=== PATIENT | male | born 1990 | race Caucasian/White ===

== ENCOUNTER → 2016-12-16 | Outpatient (CLI) | payer BC | LOC: MW.CHIM 16:10 | PROVIDERS: ATTEND Internal Medicine | DX: R68.89 Other general symptoms and signs (principal) | CPT/HCPCS: 87804 ==

== ENCOUNTER 2016-12-17 21:27 | Emergency (ER) | payer BC ==
[2016-12-17] MEDS ORDERED: Sodium Chloride 0.9% 2.5 ML Syringe FLUSH PRN (22:17)
[2016-12-17] MEDS ORDERED: Sodium Chloride 0.9% 10 ML Syringe FLUSH PRN (22:17)
[2016-12-17] MEDS ORDERED: Sodium Chloride 0.9% 1,000 ML IV ONE (22:17)
--- NOTE | 2016-12-17 22:21 | EDM.PDOC ---
<Smiley Miranda - Last Filed: 12/17/16 22:22> ED HPI GI/ABDOMINAL - General Chief Complaint: Gastrointestinal Problem Stated Complaint: VOMITING/FEVER/CHILLS/DIARRHEA Time Seen by Provider: 12/17/16 22:15 Source of Information: Reports: Patient, Family History Limitations: Reports: No limitations - History of Present Illness INITIAL COMMENTS - FREE TEXT/NARRATIVE: HISTORY AND PHYSICAL: [26-year-old male presenting with abdominal pain diarrhea sore throat] History of Present Illness: [Patient sick for 3 days started on antibiotics by Dr. Styles. Patient does not know what type of antibiotic he has been on these started having diarrhea after taking it] Review of Systems: As per history of present illness and below otherwise all systems reviewed and negative. Past medical history: As per history of present illness and as reviewed below otherwise noncontributory. Surgical history: As per history of present illness and as reviewed below otherwise noncontributory. Social history: No reported history of drug or alcohol abuse. Family history: As per history of present illness and as reviewed below otherwise noncontributory. Physical exam: Alert and oriented, skin is pale, tongue is dry. HEENT: Atraumatic, normocehpalic, pupils reactive, negative for conjunctival pallor or scleral icterus, mucous membranes moist, throat clear, neck supple, nontender, trachea midline. It is nontender tympanic membranes are dull, pharynx is erythematous, shotty cervical adenopathy palpable. Lungs: Clear to auscultation, breath sounds equal bilaterally, chest non tender. Heart: S1S2, regular, negative for clicks, rubs, or JVD. Abdomen: Soft, nondistended, nontender. Negative for masses or hepatossplenmegaly. Negative for costovertebral tenderness. Extremities: Atraumatic, negative for cords or calf pain. Neurovascular unremarkable. Neuro: Awake, alert, oriented. Cranial nerves II through XII unremarkable. Cerebellum unremarkable. Motor and sensory unremarkable throughout. Exam nonfocal. Diagnostics: [CBC, CMP, Strep] Therapeutics: [] Impression: [] Nausea & vomiting Dehydration Diarrhea Plan: [] Definitive disposition and diagnosis as appropriate pending reevaluation and review of above. - Related Data Allergies/ADRs: Allergies Allergy/AdvReac Type Severity Reaction Status Date / Time No Known Allergies Allergy Verified 12/17/16 22:13 Home Meds: Home Meds Amoxicillin/Potassium Clav [Augmentin 875-125 Tablet] 1 tab PO Q12HR 12/17/16 [ History] ED ROS GENERAL - Review of Systems Review Of Systems: ROS reveals no pertinent complaints other than HPI. ED EXAM, GI/ABD - Physical Exam Exam: See Below (see dictation) Course - Vital Signs Last Recorded V/S: Last Vital Signs Temp 36.9 C 12/17/16 22:15 Pulse 93 12/17/16 22:15 Resp 18 12/17/16 22:15 BP 166/76 H 12/17/16 22:15 Pulse Ox 96 12/17/16 22:15 - Orders/Labs/Meds Orders: Active Orders 24 hr Category Date Time Status Communication Order [RC] STAT Care 12/17/16 22:28 Active CULTURE STOOL + CAMPY+SHIGATOX [] Stat Lab 12/18/16 00:10 Received CULTURE STREP A CONFIRMATION [] Stat Lab 12/17/16 22:38 Results STREP SCRN A RAPID W CULT CONF [] Stat Lab 12/17/16 22:38 Results Sodium Chloride 0.9% [Saline Flush] Med 12/17/16 22:17 Active 10 ml FLUSH ASDIRECTED PRN Sodium Chloride 0.9% [Saline Flush] Med 12/17/16 22:17 Active 2.5 ml FLUSH ASDIRECTED PRN Saline Lock Insert [OM.PC] Stat Oth 12/17/16 22:17 Ordered Medication Orders Sodium Chloride (Saline Flush) 10 ml FLUSH ASDIRECTED PRN PRN Reason: Keep Vein Open Sodium Chloride (Saline Flush) 2.5 ml FLUSH ASDIRECTED PRN PRN Reason: Keep Vein Open Labs: Laboratory Tests 12/17/16 12/17/16 12/17/16 Range/Units 22:29 22:35 22:35 WBC 5.80 (4.0-11.0) K/uL RBC 5.22 (4.50-5.90) M/uL Hgb 15.7 (13.0-17.0) g/dL Hct 46.2 (38.0-50.0) % MCV 88.5 (80.0-98.0) fL MCH 30.1 (27.0-32.0) pg MCHC 34.0 (31.0-37.0) g/dL RDW Std Deviation 44.2 (28.0-62.0) fl RDW Coeff of Jey 14 (11.0-15.0) % Plt Count 161 (150-400) K/uL MPV 10.40 (7.40-12.00) fL Neut % (Auto) 67.5 (48.0-80.0) % Lymph % (Auto) 21.6 (16.0-40.0) % Morrow % (Auto) 9.0 (0.0-15.0) % Eos % (Auto) 1.7 (0.0-7.0) % Baso % (Auto) 0.2 (0.0-1.5) % Neut # 3.9 (1.4-5.7) K/uL Lymph # 1.3 (0.6-2.4) K/uL Morrow # 0.5 (0.0-0.8) K/uL Eos # 0.1 (0.0-0.7) K/uL Baso # 0.0 (0.0-0.1) K/uL Nucleated RBC % 0.0 /100WBC Nucleated RBCs # 0 K/uL Lactate 0.7 (0.20-2.00) mmol/L Sodium 135 L (136-146) mmol/L Potassium 4.0 (3.5-5.1) mmol/L Chloride 101 (98-110) mmol/L Carbon Dioxide 26 (21-31) mmol/L BUN 12 (6.0-23.0) mg/dL Creatinine 0.8 (0.6-1.5) mg/dL Est Cr Clr Drug Dosing 145.40 mL/min Estimated GFR (MDRD) > 60.0 ml/min Glucose 105 (60-110) mg/dL Calcium 8.5 L (8.8-10.8) mg/dL Total Bilirubin 0.8 (0.1-1.5) mg/dL AST 25 (5-40) IU/L ALT 24 (8-54) IU/L Alkaline Phosphatase 52 (40-150) Total Protein 7.5 (6.0-8.0) g/dL Albumin 4.2 (3.5-5.0) g/dL Globulin 3.3 (2.0-3.5) g/dL Albumin/Globulin Ratio 1.3 (1.3-2.8) Amylase (10-90) U/L Lipase (7-80) U/L Urine Color Urine Appearance Urine pH (5.0-8.0) Ur Specific [place] (1.001-1.035) Urine Protein (NEGATIVE) mg/dL Urine Glucose (UA) (NEGATIVE) mg/dL Urine Ketones (NEGATIVE) mg/dL Urine Occult Blood (NEGATIVE) Urine Nitrite (NEGATIVE) Urine Bilirubin (NEGATIVE) Urine Ictotest Urine Urobilinogen (<2.0) EU/dL Ur Leukocyte Esterase (NEGATIVE) Urine RBC (0-2/HPF) Urine WBC (0-5/HPF) Ur Epithelial Cells (NONE-FEW) Calcium Oxalate Crystal (NEGATIVE) Urine Bacteria (NEGATIVE) Urine Mucus (NONE-MOD) 12/17/16 12/18/16 Range/Units 22:35 00:10 WBC (4.0-11.0) K/uL RBC (4.50-5.90) M/uL Hgb (13.0-17.0) g/dL Hct (38.0-50.0) % MCV (80.0-98.0) fL MCH (27.0-32.0) pg MCHC (31.0-37.0) g/dL RDW Std Deviation (28.0-62.0) fl RDW Coeff of Jey (11.0-15.0) % Plt Count (150-400) K/uL MPV (7.40-12.00) fL Neut % (Auto) (48.0-80.0) % Lymph % (Auto) (16.0-40.0) % Morrow % (Auto) (0.0-15.0) % Eos % (Auto) (0.0-7.0) % Baso % (Auto) (0.0-1.5) % Neut # (1.4-5.7) K/uL Lymph # (0.6-2.4) K/uL Morrow # (0.0-0.8) K/uL Eos # (0.0-0.7) K/uL Baso # (0.0-0.1) K/uL Nucleated RBC % /100WBC Nucleated RBCs # K/uL Lactate (0.20-2.00) mmol/L Sodium (136-146) mmol/L Potassium (3.5-5.1) mmol/L Chloride (98-110) mmol/L Carbon Dioxide (21-31) mmol/L BUN (6.0-23.0) mg/dL Creatinine (0.6-1.5) mg/dL Est Cr Clr Drug Dosing mL/min Estimated GFR (MDRD) ml/min Glucose (60-110) mg/dL Calcium (8.8-10.8) mg/dL Total Bilirubin (0.1-1.5) mg/dL AST (5-40) IU/L ALT (8-54) IU/L Alkaline Phosphatase (40-150) Total Protein (6.0-8.0) g/dL Albumin (3.5-5.0) g/dL Globulin (2.0-3.5) g/dL Albumin/Globulin Ratio (1.3-2.8) Amylase 64 (10-90) U/L Lipase 36 (7-80) U/L Urine Color YELLOW Urine Appearance CLEAR Urine pH 6.0 (5.0-8.0) Ur Specific [place] >= 1.030 (1.001-1.035) Urine Protein TRACE (NEGATIVE) mg/dL Urine Glucose (UA) NEGATIVE (NEGATIVE) mg/dL Urine Ketones TRACE H (NEGATIVE) mg/dL Urine Occult Blood NEGATIVE (NEGATIVE) Urine Nitrite NEGATIVE (NEGATIVE) Urine Bilirubin SMALL H (NEGATIVE) Urine Ictotest NEGATIVE Urine Urobilinogen 0.2 (<2.0) EU/dL Ur Leukocyte Esterase NEGATIVE (NEGATIVE) Urine RBC 0-1 (0-2/HPF) Urine WBC 0-2 (0-5/HPF) Ur Epithelial Cells RARE (NONE-FEW) Calcium Oxalate Crystal FEW (NEGATIVE) Urine Bacteria RARE (NEGATIVE) Urine Mucus MODERATE (NONE-MOD) Meds: Medications Generic Name Dose Route Start Last Admin Trade Name Freq PRN Reason Stop Dose Admin Sodium Chloride 10 ml 12/17/16 22:17 Saline Flush FLUSH ASDIRECTED PRN Keep Vein Open Sodium Chloride 2.5 ml 12/17/16 22:17 Saline Flush FLUSH ASDIRECTED PRN Keep Vein Open Discontinued Medications Generic Name Dose Route Start Last Admin Trade Name Freq PRN Reason Stop Dose Admin Sodium Chloride 1,000 mls @ 999 mls/hr 12/17/16 22:17 12/17/16 23:06 Normal Saline IV 12/17/16 23:17 999 mls/hr STAT ONE Administration Ketorolac Tromethamine 30 mg 12/17/16 22:29 12/17/16 23:11 Toradol IVPUSH 12/17/16 22:30 30 mg ONETIME ONE Administration Ondansetron HCl 4 mg 12/17/16 22:23 12/17/16 23:09 Zofran IVPUSH 12/17/16 22:24 4 mg ONETIME ONE Administration Departure - Departure Time of Disposition: 22:24 Disposition: Still A Patient 30 Condition: good Clinical Impression: Vomiting, Diarrhea Instructions: Dehydration, Adult, [id number] Referrals: PCP,None [Primary Care Provider] - Forms: ED Department Discharge Additional Instructions: For his given to Dr. Asiya Chan to assume care. Patient has stable vital signs. - My Orders Last 24 Hours: My Active Orders 12/17/16 22:28 Communication Order [RC] STAT 12/18/16 00:10 CULTURE STOOL + CAMPY+SHIGATOX [RM] Stat - Assessment/Plan Last 24 Hours: My Active Orders 12/17/16 22:28 Communication Order [RC] STAT 12/18/16 00:10 CULTURE STOOL + CAMPY+SHIGATOX [RM] Stat <Asiya Chan - Last Filed: 12/18/16 01:39> ED HPI GI/ABDOMINAL - History of Present Illness INITIAL COMMENTS - FREE TEXT/NARRATIVE: This Is Dr. Chan dictating an addendum note as the supervising physician on this case. Agree with history of physical as above. Patient states he was just feeling weak somewhat lightheaded and had a fever and then saw Dr. Styles and influenza was negative. He states his present antibiotics but he is not sure why and of the diarrhea started after that. He's not had any recent travel and no new foods. He's been nauseated for the last several days and only vomited once today. He's had fevers on and off and he's been trying to hydrate and he's been feeling so nauseated. He has no complaints no headache no chest pain or shortness of breath runny nose but does have a sore throat.I agree with the physical as above and I will add to the testing or he ordered a UA amylase lipase lactic acid any stool study if he's able to produce Patient was able to produce a stool sample and it was sent for C. difficile as well as culture ;he does state he does feel improved He is currently starting to take by mouth. Advised patient to stop the antibiotic that he was started on by Dr. Styles Patient is aware that C. difficile is negative and a culture will be pending and we will contact him in 2 days if he needs treatment. I will abide is on bland diet pushing hydration and reasons to return to the ER. I discussed all testing results with him. Impression: Diarrhea/mild dehydration Course - Orders/Labs/Meds Labs: Laboratory Tests 12/17/16 12/17/16 12/17/16 Range/Units 22:29 22:35 22:35 WBC 5.80 (4.0-11.0) K/uL RBC 5.22 (4.50-5.90) M/uL Hgb 15.7 (13.0-17.0) g/dL Hct 46.2 (38.0-50.0) % MCV 88.5 (80.0-98.0) fL MCH 30.1 (27.0-32.0) pg MCHC 34.0 (31.0-37.0) g/dL RDW Std Deviation 44.2 (28.0-62.0) fl RDW Coeff of Jey 14 (11.0-15.0) % Plt Count 161 (150-400) K/uL MPV 10.40 (7.40-12.00) fL Neut % (Auto) 67.5 (48.0-80.0) % Lymph % (Auto) 21.6 (16.0-40.0) % Morrow % (Auto) 9.0 (0.0-15.0) % Eos % (Auto) 1.7 (0.0-7.0) % Baso % (Auto) 0.2 (0.0-1.5) % Neut # 3.9 (1.4-5.7) K/uL Lymph # 1.3 (0.6-2.4) K/uL Morrow # 0.5 (0.0-0.8) K/uL Eos # 0.1 (0.0-0.7) K/uL Baso # 0.0 (0.0-0.1) K/uL Nucleated RBC % 0.0 /100WBC Nucleated RBCs # 0 K/uL Lactate 0.7 (0.20-2.00) mmol/L Sodium 135 L (136-146) mmol/L Potassium 4.0 (3.5-5.1) mmol/L Chloride 101 (98-110) mmol/L Carbon Dioxide 26 (21-31) mmol/L BUN 12 (6.0-23.0) mg/dL Creatinine 0.8 (0.6-1.5) mg/dL Est Cr Clr Drug Dosing 145.40 mL/min Estimated GFR (MDRD) > 60.0 ml/min Glucose 105 (60-110) mg/dL Calcium 8.5 L (8.8-10.8) mg/dL Total Bilirubin 0.8 (0.1-1.5) mg/dL AST 25 (5-40) IU/L ALT 24 (8-54) IU/L Alkaline Phosphatase 52 (40-150) Total Protein 7.5 (6.0-8.0) g/dL Albumin 4.2 (3.5-5.0) g/dL Globulin 3.3 (2.0-3.5) g/dL Albumin/Globulin Ratio 1.3 (1.3-2.8) Amylase (10-90) U/L Lipase (7-80) U/L Urine Color Urine Appearance Urine pH (5.0-8.0) Ur Specific [place] (1.001-1.035) Urine Protein (NEGATIVE) mg/dL Urine Glucose (UA) (NEGATIVE) mg/dL Urine Ketones (NEGATIVE) mg/dL Urine Occult Blood (NEGATIVE) Urine Nitrite (NEGATIVE) Urine Bilirubin (NEGATIVE) Urine Ictotest Urine Urobilinogen (<2.0) EU/dL Ur Leukocyte Esterase (NEGATIVE) Urine RBC (0-2/HPF) Urine WBC (0-5/HPF) Ur Epithelial Cells (NONE-FEW) Calcium Oxalate Crystal (NEGATIVE) Urine Bacteria (NEGATIVE) Urine Mucus (NONE-MOD) 12/17/16 12/18/16 Range/Units 22:35 00:10 WBC (4.0-11.0) K/uL RBC (4.50-5.90) M/uL Hgb (13.0-17.0) g/dL Hct (38.0-50.0) % MCV (80.0-98.0) fL MCH (27.0-32.0) pg MCHC (31.0-37.0) g/dL RDW Std Deviation (28.0-62.0) fl RDW Coeff of Jey (11.0-15.0) % Plt Count (150-400) K/uL MPV (7.40-12.00) fL Neut % (Auto) (48.0-80.0) % Lymph % (Auto) (16.0-40.0) % Morrow % (Auto) (0.0-15.0) % Eos % (Auto) (0.0-7.0) % Baso % (Auto) (0.0-1.5) % Neut # (1.4-5.7) K/uL Lymph # (0.6-2.4) K/uL Morrow # (0.0-0.8) K/uL Eos # (0.0-0.7) K/uL Baso # (0.0-0.1) K/uL Nucleated RBC % /100WBC Nucleated RBCs # K/uL Lactate (0.20-2.00) mmol/L Sodium (136-146) mmol/L Potassium (3.5-5.1) mmol/L Chloride (98-110) mmol/L Carbon Dioxide (21-31) mmol/L BUN (6.0-23.0) mg/dL Creatinine (0.6-1.5) mg/dL Est Cr Clr Drug Dosing mL/min Estimated GFR (MDRD) ml/min Glucose (60-110) mg/dL Calcium (8.8-10.8) mg/dL Total Bilirubin (0.1-1.5) mg/dL AST (5-40) IU/L ALT (8-54) IU/L Alkaline Phosphatase (40-150) Total Protein (6.0-8.0) g/dL Albumin (3.5-5.0) g/dL Globulin (2.0-3.5) g/dL Albumin/Globulin Ratio (1.3-2.8) Amylase 64 (10-90) U/L Lipase 36 (7-80) U/L Urine Color YELLOW Urine Appearance CLEAR Urine pH 6.0 (5.0-8.0) Ur Specific [place] >= 1.030 (1.001-1.035) Urine Protein TRACE (NEGATIVE) mg/dL Urine Glucose (UA) NEGATIVE (NEGATIVE) mg/dL Urine Ketones TRACE H (NEGATIVE) mg/dL Urine Occult Blood NEGATIVE (NEGATIVE) Urine Nitrite NEGATIVE (NEGATIVE) Urine Bilirubin SMALL H (NEGATIVE) Urine Ictotest NEGATIVE Urine Urobilinogen 0.2 (<2.0) EU/dL Ur Leukocyte Esterase NEGATIVE (NEGATIVE) Urine RBC 0-1 (0-2/HPF) Urine WBC 0-2 (0-5/HPF) Ur Epithelial Cells RARE (NONE-FEW) Calcium Oxalate Crystal FEW (NEGATIVE) Urine Bacteria RARE (NEGATIVE) Urine Mucus MODERATE (NONE-MOD)
[2016-12-17] MEDS ORDERED: Ondansetron 4 MG/2 ML SDV IVPUSH ONE (22:23)
[2016-12-17] MEDS ORDERED: Ketorolac 30 MG/ML SDV IVPUSH ONE (22:29)
[2016-12-18 00:25] LABS: CHLORIDE,CL 101 mmol/L (98-110); SODIUM,NA 135 mmol/L (136-146)
[2016-12-18 01:56] VITALS: BP 106/60
== END 2016-12-18 01:55 | disposition still patient (30) ==
LOC: MW.ED 21:27
DX: R19.7 Diarrhea, unspecified (principal); R11.2 Nausea with vomiting, unspecified
CPT/HCPCS: 36415; 80053; 81001; 82150; 83605; 83690; 85025; 87046; 87081; 87324; 87880; 87899; 96361; 96374; 96375; 99284; J1885; J2405; J7040

== ENCOUNTER 2020-06-02 17:46 | Emergency (ER) | payer BC ==
[2020-06-02] MEDS ORDERED: Lidocaine 1% PF 2 ML SDV INJECT ONE (17:47)
[2020-06-02] MEDS ORDERED: Diphtheria,Pertussis(Acell),Tetanus Vaccine 0.5 ML Syringe IM ONE (17:47)
--- NOTE | 2020-06-02 18:02 | EDM.PDOC ---
ED HPI GENERAL MEDICAL PROBLEM - General Chief Complaint: Laceration Stated Complaint: CUT FINGER Time Seen by Provider: 06/02/20 17:47 Source of Information: Reports: Patient History Limitations: Reports: No Limitations - History of Present Illness INITIAL COMMENTS - FREE TEXT/NARRATIVE: HISTORY AND PHYSICAL: History of present illness: Patient is a 30-year-old male who presents to the emergency room with complaints of a laceration to his right index finger. 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 He denies any other extremity involvement. He offers no systemic complaints. Believes his tetanus has been updated within the last 3 years. Review of systems: As per history of present illness and below otherwise all systems reviewed and negative. Past medical history: As per history of present illness and as reviewed below otherwise noncontributory. Surgical history: As per history of present illness and as reviewed below otherwise noncontributory. Social history: See social history for further information Family history: As per history of present illness and as reviewed below otherwise noncontributory. Physical exam: General: Well developed and well nourished 30 year old male. Alert and orientated x 3. Nontoxic in appearance and in no acute distress. Vital signs are stable and have been reviewed by me. Nursing notes were reviewed. HEENT: Atraumatic, normocephalic, pupils equal and reactive bilaterally, negative for conjunctival pallor or scleral icterus, mucous membranes moist, trachea midline. No drooling or trismus noted. No meningeal signs. No hot potato voice noted. Lungs: Clear to auscultation, breath sounds equal bilaterally. Normal work of breathing, no accessory muscles used. Heart: S1S2, regular rate and rhythm without overt murmur Skin: 1.5 cm laceration to the mid palmar surface of the right index finger. No tendon involvement. His remaining skin is intact, warm, dry. No lesions or rashes noted. Hematologic: No petechiae or purpra. Mucosa appropriate color and normal nail bed color and refill. Extremities: Atraumatic, moves all extremities per self without difficulty or deficits, negative for cords or calf pain. Neurovascular unremarkable. Neuro: Awake, alert, oriented. Cranial nerves II through XII unremarkable. Cerebellum unremarkable. Motor and sensory unremarkable throughout. Exam nonfocal. Notes: 1% lidocaine was used to anesthetize the area. Usual and customary procedures were followed for suture placement. 4-0 nylon, #3 interrupted sutures were placed. Patient tolerated well. We discussed signs and symptoms that would prompt them to return to the Emergency Department. Medication, follow up and supportive care measures were reviewed and discussed. Voices understanding and is agreeable to plan of care. Denies any further questions or concerns at this time. Diagnostics: None Therapeutics: Tdap, Lidocaine Prescription: None Impression: Laceration Plan: 1. Keep the area clean and dry. Continue to monitor for signs of infection. Sutures to be removed in 7-10 days. 2. Tylenol and/or ibuprofen as needed for pain management. 3. Please follow-up with your primary care provider for re-evaluation. Return to the ED as needed and as discussed. Definitive disposition and diagnosis as appropriate pending reevaluation and review of above. - Related Data Allergies Allergy/AdvReac Type Severity Reaction Status Date / Time No Known Allergies Allergy Verified 06/02/20 17:50 Home Meds: Home Meds . [No Known Home Meds] 06/02/20 [History] Past Medical History - Past Health History Medical/Surgical History: Denies Medical/Surgical History - Past Surgical History Other Musculoskeletal Surgeries/Procedures:: Right elbow and right femur surgery Social & Family History - Family History Family Medical History: Noncontributory - Caffeine Use Caffeine Use: Reports: Soda Caffeine Use Comment: 3drinks/day ED ROS GENERAL - Review of Systems Review Of Systems: Comprehensive ROS is negative, except as noted in HPI. ED EXAM, SKIN/RASH Exam: See Below (See dictation) ED SKIN PROCEDURES - Laceration/Wound Repair Right index finger Appearance: Subcutaneous, Linear, Clean Distal NVT: Neuro & Vascular Intact, No Tendon Injury Anesthetic Type: Local Local Anesthesia - Lidocaine (Xylocaine): 1% Plain Local Anesthetic Volume: 2cc Skin Prep: Chlorhexidine (Hibiciens), Saline, Sterile Drape Saline Irrigation (cc's): 250 Exploration/Debridement/Repair: Wound Explored, In a Bloodless Field, Explored to Base, No Foreign Material Found Closed with: Sutures Lac/Wound length In cm: 1.5 Suture Size: 4-0 # of Sutures: 3 Suture Type: Nylon, Interrupted, Simple Drain Placement: No Sterile Dressing Applied: Provider Tetanus Status Addressed: Yes Complications: No Course - Vital Signs Last Recorded V/S: Last Vital Signs Temp 97.1 F 06/02/20 17:51 Pulse 89 06/02/20 17:51 Resp 19 06/02/20 17:51 BP 109/63 06/02/20 17:51 Pulse Ox 99 06/02/20 17:51 - Orders/Labs/Meds Orders: Active Orders 24 hr Category Date Time Status Vaccines to be Administered [RC] PER UNIT ROUTINE Care 06/02/20 17:47 Ordered Meds: Medications Discontinued Medications Generic Name Dose Route Start Last Admin Trade Name Deniz PRN Reason Stop Dose Admin Diphtheria/Tetanus/Acell Pertussis 0.5 ml 06/02/20 17:47 06/02/20 17:57 Adacel IM 06/02/20 17:48 Not Given .ONCE ONE Lidocaine HCl 2 ml 06/02/20 17:47 06/02/20 17:57 Xylocaine-Mpf 1% INJECT 06/02/20 17:48 2 ml ONETIME ONE Administration Departure - Departure Time of Disposition: 18:07 Disposition: Home, Self-Care 01 Clinical Impression: Laceration - Discharge Information Instructions: Laceration Care, Adult, Pall-[id number] Referrals: PCP,None [Primary Care Provider] - Forms: ED Department Discharge Additional Instructions: The following information is given to patients seen in the emergency department who are being discharged to home. This information is to outline your options for follow-up care. We provide all patients seen in our emergency department with a follow-up referral. The need for follow-up, as well as the timing and circumstances, are variable depending upon the specifics of your emergency department visit. If you don't have a primary care physician on staff, we will provide you with a referral. We always advise you to contact your personal physician following an emergency department visit to inform them of the circumstance of the visit and for follow-up with them and/or the need for any referrals to a consulting specialist. The emergency department will also refer you to a specialist when appropriate. This referral assures that you have the opportunity for follow-up care with a specialist. All of these measure are taken in an effort to provide you with optimal care, which includes your follow-up. Under all circumstances we always encourage you to contact your private physician who remains a resource for coordinating your care. When calling for follow-up care, please make the office aware that this follow-up is from your recent emergency room visit. If for any reason you are refused follow-up, please contact the [facility] Emergency Department at and asked to speak to the emergency department charge nurse. [facility] [address] [place] [address] [facility] [address] [place] [address] Thank you for choosing the [facility] emergency department in [place] for your medical needs today. It was a pleasure caring for you. Today you were seen in the emergency department for laceration care. 1. Keep the area clean and dry. Continue to monitor for signs of infection. Sutures to be removed in 7-10 days. 2. Tylenol and/or ibuprofen as needed for pain management. 3. Please follow-up with your primary care provider for re-evaluation. Return to the ED as needed and as discussed. Sepsis Event Note (ED) - Focused Exam Vital Signs: Vital Signs Temp Pulse Resp BP Pulse Ox 06/02/20 17:51 97.1 F 89 19 109/63 99 - My Orders Last 24 Hours: My Active Orders 06/02/20 17:47 Vaccines to be Administered [RC] PER UNIT ROUTINE - Assessment/Plan Last 24 Hours: My Active Orders 06/02/20 17:47 Vaccines to be Administered [RC] PER UNIT ROUTINE
[2020-06-02 20:28] VITALS: BP 100/62; PULSE 83
== END 2020-06-02 18:10 | disposition home or self-care (01) ==
LOC: MW.ED 17:46
DX: S61.211A Laceration without foreign body of left index finger without damage to nail, initial encounter (principal); W26.8XXA Contact with other sharp object(s), not elsewhere classified, initial encounter
CPT/HCPCS: 12001; 99282; J2001

== ENCOUNTER 2021-11-10 11:50 | Emergency (ER) | payer BC ==
[2021-11-10 13:03] VITALS: BP 102/66; PULSE 70
[2021-11-10] MEDS ORDERED: traMADol 50 MG Tab PO ONE (13:04)
== END 2021-11-10 13:39 | disposition home or self-care (01) ==
LOC: MW.ED 11:50
DX: S89.92XA Unspecified injury of left lower leg, initial encounter (principal); W00.0XXA Fall on same level due to ice and snow, initial encounter
CPT/HCPCS: 73590; 99283; A9270